=== PATIENT | female | born 1960 | race Caucasian/White ===

== ENCOUNTER 2016-12-04 06:10 | Day surgery (SDC) | payer OTHER ==
[~2016-12-04] VITALS: Ht 167.6 cm; Wt 74.7 kg
[2016-12-04] VITALS (9 sets, daily range): BP systolic 115–122; BP diastolic 64–74; PULSE 61–78; RESP 7–14; O2SAT 97–100
[~2016-12-04 06:10] MED LIST: CeFAZolin 2 Gm/50 mL D5W IV Premix IV ONE; ESTR1PAT81 TRANSDERM; LEVO100C2 PO; Lactated Ringer's 1,000 ML IV ONE; PROG100C6 PO
[2016-12-04] MEDS ORDERED: EPHEDrine/NS 5 mg/mL 5 mL Syringe ONE (06:11)
[2016-12-04] MEDS ORDERED: Dexamethasone 4 mg/mL Inj ONE (06:11)
[2016-12-04] MEDS ORDERED: Propofol 10,000 mCg/mL 20 mL Inj ONE (06:11)
[2016-12-04] MEDS ORDERED: fentaNYL-PF 50 mCg/mL 2 mL Inj ONE (06:11)
[2016-12-04] MEDS ORDERED: Ondansetron 2 mg/mL 2 mL Inj ONE (06:11)
[2016-12-04] MEDS ORDERED: IBUP200C PO (07:04)
--- NOTE | 2016-12-04 07:33 | PCM.HPANE ---
Patient Data Date of Service: Dec 04, 2016 Surgeon Admitting Provider: Attending Provider:Israel Cerna MD Primary Care Physician:Sandy Buckner Other Provider: Reason for Visit Left Medial Meniscus Tear Ht/WT & BMI Height (Feet): 5 Height (Inches): 6.00 Weight (Kilograms): 74.700 Body Mass Index 26.00 Allergies Coded Allergies: No Known Allergies (Unverified , 11/29/16) Past Anesthesia History Anesthesia History: Denies:: Anesthesia Reactions, Malignant Hyperthermia Diabetes History Hx Diabetes?: No MRSA MRSA: No Medications Home Meds Incl Beta Moe: No Reported Medications Ibuprofen 200 Mg [id number] Mg PO QID PRN For Pain Ref 0 12/04/16 Levothyroxine (Tirosint)100 Mcg [id number] Mcg PO DAILY 11/29/16 Progesterone,Micronized (Progesterone)100 Mg [id number] Mg PO DAILY 11/29/16 Estradiol 0.05 mg/24 hr Patch 1 Each Patch.tdwk1 Patch TRANSDERM WEEKLY Ref 0 11/29/16 History History of ENT Problems?: Yes Other HEENT Pertinent History: S/P TONSILLECTOMY Hx of Heart Problems?: No Cardiovascular History: Denies:: Hypertension Hx of Respiratory Problem?: No Respiratory History: Denies:: Use of C-PAP Machine Hx Neurologic Problems?: No Hx of GI Problems?: No Hx of Problems?: No Female Hx: Denies:: Currently Skin History: Denies:: History Skin Disorders? Pressure Ulcers Hx Musculoskeletal Problems?: Yes Musculoskeletal History: Positive for:: Musculoskeletal Trauma (LT MEDIAL MENISCAL TEAR=CURRENT PROBLEM) Hx of Psycho/Social Problems?: No Hx Surgeries?: Yes (TONSILLECTOMY) Hx Any Other Health Problems?: Yes Other History: Positive for:: Thyroid Disease Denies:: Cancer Endocrine Disease Hospitalization History Blood Transfusions: Denies:: Blood Transfusions Hx Diabetes: No Have You Smoked inLast 12 mo: No Stop/Bang Risk Assessment Category Category 1A: Patient has history of documented sleep apnea, and HAS NOT received any narcotic, sedative or anesthesia administration during this stay. Category 1B: Patient has history of documented sleep apnea, and HAS received any narcotic , sedative or anesthesia administration during this stay Category 2: Patient has SUSPECTED Obstructive Sleep Apnea, and HAS received any narcotic , sedative or anesthesia administration during this stay. Category 3: Patient has SUSPECTED Obstructive Sleep Apnea and HAS NOT received narcotic, sedative or anesthesia administration during this stay. Category 4: Outpatient in Procedural Areas with known sleep apnea or who screen positive for High Risk via the STOP/BANG questionnaire. Exam Exam Vital Signs Vital Signs Date Time Temp Pulse Resp B/P Pulse Ox O2 Delivery O2 Flow Rate FiO2 12/04/16 06:57 35.5 78 12 120/71 97 Room Air 12/04/16 06:32 35.5 78 12 120/71 97 Room Air General Appearance: Oriented X3, Cooperative HEENT/AIRWAY: MP 2 Lungs: Clear to Auscultation Heart: Exam Unremarkable, Regular Rate/Rhythm Meds/Labs/Diagnostics Admission Meds Current Medications Lactated Ringer's (Lr) 1,000 ml @ 120 mls/hr [id number] ONCE IV Last administered on 12/04/16t 06:15; Start 12/04/16 at 05:00; Stop 12/04/16 at 13:19 Plan Impression Patient chart reviewed, patient interviewed and anesthestic plan with risks, benefits, and alternatives discussed, and informed consent obtained. NPO Status: 7pm ASA Physical Status: ASA2 Mod Systemic Disease Anesthetic Plan: GA Bene/Risks/Altern/Consents: Yes HP Complete Prior to Induction: Yes Darrel Garcia MD Dec 04, 2016 07:33
[2016-12-04] MEDS ORDERED: Bupivacaine-MPF 0.25%/EPI 30 mL Inj INJ ONE (08:05)
[2016-12-04] MEDS ORDERED: Dexamethasone 4 mg/mL Inj INTRARTICU ONE (08:05)
[2016-12-04] MEDS ORDERED: Lactated Ringer's 500 ML IV PRN (08:36)
[2016-12-04] MEDS ORDERED: Lactated Ringer's 1,000 ML IV SCH (08:36)
--- NOTE | 2016-12-04 08:38 | PCM.ANEP2 ---
Post Anesthesia Evaluation ASA/CMS Post Anesthesia Date of Service: Dec 04, 2016 VS in Patient's Normal Range?: Yes Resp Stable; Airway Patent?: Yes CV Function & Hydration Stable: Yes Mental Status Recovered?: Yes Pain control Satisfactory?: Yes N/V Control Satisfactory?: Yes Darrel Garcia MD Dec 04, 2016 08:38
--- NOTE | 2016-12-04 08:38 | PCM.ANEP1 ---
Post Anesthesia Phase 1 PACU Phase 1 Assessment Date of Service: Dec 04, 2016 Vital Signs Vital Signs Date Time Temp Pulse Resp B/P Pulse Ox O2 Delivery O2 Flow Rate FiO2 12/04/16 08:35 76 13 119/74 98 Room Air 12/04/16 08:30 36.0 61 7 118/72 100 Simple Mask 8 12/04/16 06:57 35.5 78 12 120/71 97 Room Air 12/04/16 06:32 35.5 78 12 120/71 97 Room Air Anesthetic Administered: GA Level of Alertness: Awake, talking WALLS's with Equal Strength: Yes Pain: No Nausea or Vomiting: No Oxygen Delivery: Room Air Lungs: Clear to Auscultation Darrel Garcia MD Dec 04, 2016 08:38
[2016-12-04] MEDS ORDERED: MetoCLOpramide 5 mg/mL 2 mL Inj IVPUSH PRN (08:40)
[2016-12-04] MEDS ORDERED: HYDROmorphone 1 mg/mL Inj IVPUSH PRN (08:40)
[2016-12-04] MEDS ORDERED: Atropine 0.4 mg/mL Inj IVPUSH PRN (08:40)
[2016-12-04] MEDS ORDERED: Labetalol 5 mg/mL 4 mL Inj IV PRN (08:40)
[2016-12-04] MEDS ORDERED: Phenylephrine 10,000 mCg/mL Inj IVPUSH PRN (08:40)
[2016-12-04] MEDS ORDERED: fentaNYL-PF 50 mCg/mL 2 mL Inj IVPUSH PRN (08:40)
[2016-12-04] MEDS ORDERED: Ondansetron 2 mg/mL 2 mL Inj IVPUSH PRN (08:40)
[2016-12-04] MEDS ORDERED: hydrALAZINE 20 mg/mL Inj IVPUSH PRN (08:40)
[2016-12-04] MEDS ORDERED: EPHEDrine Sulfate 50 mg/mL Inj IVPUSH PRN (08:40)
[2016-12-04] MEDS ORDERED: oxyCODONE-Acetamin 5-325 mg Tablet PO ONE (09:10)
--- NOTE | 2016-12-05 07:36 | OP ---
[address] [address] OPERATIVE REPORT PATIENT: FRANKI ANGEL : 1960 MR#: [id number] ADMIT: 12/04/2016 JOB ID: [id number] DATE OF SURGERY: 12/04/2016 PREOPERATIVE DIAGNOSIS(ES): Internal derangement, left knee. POSTOPERATIVE DIAGNOSIS(ES): Internal derangement, left knee. PROCEDURE: Left knee arthroscopic medial lateral meniscectomy with medial plica release. SURGEON: Israel Cerna MD. HAIR PREPARER: None. INDICATIONS: This woman has had persistent symptoms related to internal derangement. MRI suggests medial and lateral meniscal pathology. She has failed conservative treatment and elects for an arthroscopy with repair as indicated. PROCEDURE: Surgical findings revealed full range of motion. No mechanical symptoms. No effusion noted on preoperative examination. Intraoperative findings revealed normal patellofemoral joint. Inflammation in the medial gutter. An inflamed and irregular medial plica was noted. Articular cartilage of the medial compartment was normal. There was mild fraying of the posterior horn of the medial meniscus, but no unstable or significant meniscal pathology was encountered due to careful and repeat probing. The ACL was intact. Lateral compartment revealed a significant lateral meniscal tear extending from the anterior horn posteriorly involving a moderate portion of the lateral meniscus. Following the diagnostic arthroscopy, attention was first turned to the lateral compartment. Baskets and a meniscal resector blade were utilized to perform a partial lateral meniscectomy. The articular cartilage was noted to be in excellent condition. All unstable meniscal tissue was removed. This involved removal of approximately 15% of the medial margin of the lateral meniscus. Attention was subsequently turned to the medial side with a very limited tear of the posterior horn of the medial meniscus was resected with baskets. Following this, attention was turned to the medial gutter where the inflamed medial plica was resected with the meniscal resector blade. Knee was lavaged of debris and irrigant, and portals were closed with nylon suture. Sterile dressing was applied. The patient was returned to the recovery room in stable condition. She tolerated the procedure well. There were no complications.
== END 2016-12-04 23:59 | disposition home or self-care (01) ==
LOC: SAS 06:10
PROVIDERS: ATTEND Orthopaedic Surgery
DX: M23.242 Derangement of anterior horn of lateral meniscus due to old tear or injury, left knee (principal); I83.92 Asymptomatic varicose veins of left lower extremity
CPT/HCPCS: 29881; J0690; J1100; J2250; J2405; J7120